=== PATIENT | female | born 1995 | race Caucasian/White ===

== ENCOUNTER 2017-12-16 10:56 | Emergency (ER) | payer MEDICAID ==
[2017-12-16 11:35] VITALS: RESP 18
--- NOTE | 2017-12-16 12:21 | C.PDOC ---
History Of Present Illness Patient is a 22 y/o female, with a Hx of asthma, who presents to the ED with a complaint of chest pain for the last 3 days. Patient reports chest pain worsens with full inspiration, lying flat, and movement. Patient also notes productive cough. Denies any leg swelling, Hx of blood clots, pulmonary embolisms, recent travel, injuries, or control. Patient admits recently being prescribed an unknown anti-inflammatory without relief. No other physical complaints. Time Seen by Provider: 12/16/17 11:18 Chief Complaint (Nursing): Chest Pain History Per: Patient History/Exam Limitations: no limitations Onset/Duration Of Symptoms: Days (3) Current Symptoms Are (Timing): Still Present Quality: Tightness Exacerbating Factors: Movement, Deep Breathing, Other (supine) Recent travel outside of the [place]: No Past Medical History Reviewed: Historical Data, Nursing Documentation, Vital Signs Vital Signs: Last Vital Signs Temp 98 F 12/16/17 14:02 Pulse 78 12/16/17 14:02 Resp 18 12/16/17 14:02 BP 126/74 12/16/17 14:02 Pulse Ox 97 12/16/17 14:08 - Medical History PMH: Asthma Surgical History: No Surg Hx Family History: States: No Known Family Hx - Social History Hx Tobacco Use: Yes (light smoker) Hx Alcohol Use: No Hx Substance Use: No - Immunization History Hx Tetanus Toxoid Vaccination: Yes Hx Influenza Vaccination: No Hx Pneumococcal Vaccination: No Review Of Systems Except As Marked, All Systems Reviewed And Found Negative. Constitutional: Negative for: Fever, Chills Cardiovascular: Positive for: Chest Pain Respiratory: Positive for: Cough, Sputum, Other (dyspnea) Genitourinary: Negative for: Dysuria, Frequency Physical Exam - Physical Exam Additional Physical Exam Comments: Constitutional: No acute distress. Head: Normocephalic. Atraumatic. Eyes: PERRL. ENT: Moist mucous membranes. Neck: Supple. Cardiovascular: Regular rate. Radial pulse 2+ bilaterally. Chest: Reproduceable chest tenderness. Pain with pectoral muscle use. Respiratory: Clear to auscultation bilaterally. GI: Soft. Nontender. Nondistended. Back: No CVA tenderness. Musculoskeletal: No tenderness or swelling of extremities. Skin: No rash. Neurologic: Alert, no focal deficit. ED Course And Treatment O2 Sat by Pulse Oximetry: 97 Progress Note: CXR and POC urine ordered. Medical Decision Making Medical Decision Making: CXR FINDINGS: LUNGS: No active pulmonary disease. PLEURA: No significant pleural effusion identified. No pneumothorax apparent. CARDIOVASCULAR: Normal. OSSEOUS STRUCTURES: No significant abnormalities. VISUALIZED UPPER ABDOMEN: Normal. OTHER FINDINGS: None. IMPRESSION: No active disease. PERC negative. Patient discharged, continue NSAIDs, f/u PMD, return to ED for worsening dyspnea, nausea, vomiting, fever, or any other problem. Disposition - Disposition Disposition: HOME/ ROUTINE Disposition Time: 13:53 Condition: STABLE Prescriptions: Guaifenesin/Dextromethorphan [Mucinex Dm ER 1,200-60 mg Tab] 1 each PO Q12H #18 tab.er.12h Instructions: Costochondritis (DC) Forms: [facility] (Slovak) - Clinical Impression Clinical Impression: Chest wall pain - Scribe Statement The provider has reviewed the documentation as recorded by the Scribe Liv Nobles All medical record entries made by the Scribe were at my direction and personally dictated by me. I have reviewed the chart and agree that the record accurately reflects my personal performance of the history, physical exam, medical decision making, and the department course for this patient. I have also personally directed, reviewed, and agree with the discharge instructions and disposition.
[2017-12-16 14:03] VITALS: BP 126/74; PULSE 78; TEMP 98
[2017-12-16 14:08] VITALS: O2SAT 97
--- NOTE | 2017-12-16 14:36 | RAD ---
HISTORY: cough COMPARISON: OpenNo prior. TECHNIQUE: Chest PA and lateral FINDINGS: LUNGS: No active pulmonary disease. PLEURA: No significant pleural effusion identified. No pneumothorax apparent. CARDIOVASCULAR: Normal. OSSEOUS STRUCTURES: No significant abnormalities. VISUALIZED UPPER ABDOMEN: Normal. OTHER FINDINGS: None. IMPRESSION: No active disease.
--- NOTE | 2017-12-19 05:53 | CARD ---
APPROVED REPORT EKG Measurement Heart [id number] <Conclusion> Normal sinus rhythm Normal ECG
== END 2017-12-16 14:03 | disposition home or self-care (01) ==
LOC: C.ER 10:56
DX: R07.89 Other chest pain (principal)
CPT/HCPCS: 71046; 93005; 96372; 99284; J1885